=== PATIENT | male | born 1945 | race Caucasian/White ===

== ENCOUNTER 2017-05-28 13:46 | Emergency (ER) | payer MEDICARE, BC ==
[~2017-05-28] VITALS: Ht 154.9 cm; Wt 83.9 kg
[~2017-05-28 13:46] MED LIST: BACTRIM DS 8001 TA1 PO; COLCRYS0.6 MG PO; HYDROCODONE BIT1 T11 PO; KEFLEX500 MG PO
[2017-05-28] MEDS ORDERED: CEPHALEXIN500 M1 PO (18:54)
== END 2017-05-28 19:13 | disposition home or self-care (01) ==
LOC: ED 13:46
DX: S01.81XA Laceration without foreign body of other part of head, initial encounter (principal); S01.21XA Laceration without foreign body of nose, initial encounter; S71.112A Laceration without foreign body, left thigh, initial encounter; Z79.899 Other long term (current) drug therapy; W19.XXXA Unspecified fall, initial encounter; Y93.89 Activity, other specified; Y92.099 Unspecified place in other non-institutional residence as the place of occurrence of the external cause; Y99.9 Unspecified external cause status

== ENCOUNTER 2017-10-21 01:30 | Emergency (ER) | payer MEDICARE, BC ==
[~2017-10-21] VITALS: Ht 180.3 cm; Wt 84.4 kg
[~2017-10-21 01:30] MED LIST changes: +CEPHALEXIN500 M1 PO
[2017-10-21 02:04] LABS: HEMATOCRIT 32.2 % (42.0-52.0); HEMOGLOBIN 10.7 g/dl (14.0-18.0); MEAN CELL VOLUME 84.1 fl (80.0-94.0); MEAN CORPUSCULAR HGB 27.9 pg (27.0-31.0); MEAN CORPUSCULAR HGB CONC 33.2 g/dl (33.0-37.0); MEAN PLATELET VOLUME 11.1 fl (9.6-12.3); PLATELET COUNT AUTOMATED 96 10*3/uL (130-400); RED BLOOD COUNT 3.83 10*6/uL (4.50-5.90); RED CELL DISTRI WIDTH 15.5 % (0-14.5); WHITE BLOOD COUNT 8.6 10*3/uL (4.8-10.8)
[2017-10-21 02:24] LABS: ALBUMIN 2.8 gm/dl (3.1-4.5); ALKALINE PHOSPHATASE 210 U/L (45-117); ATYPICAL LYMPHS 2 % (0-0); BUN 37 mg/dl (7-24); CHLORIDE 102 mmol/L (98-107); CREATININE 2.16 mg/dL (0.70-1.30); LIPASE 93 U/L (73-393); POTASSIUM 3.8 mmol/L (3.5-5.1); SGOT/AST 83 IU/L (3-35); SGPT/ALT 219 U/L (12-78); SODIUM 136 mmol/L (136-145); TOTAL CELLS COUNTED 100 #CELLS; TOTAL PROTEIN 7.1 gm/dL (6.4-8.2)
[2017-10-21 02:25] LABS: BURR CELLS FEW; OVALOCYTES FEW; PLATELET SUFFICIENCY LOW (NORMAL); POLYCHROMASIA SLIGHT
[2017-10-21 02:26] LABS: TROPONIN I < 0.015 ng/ml (<0.045)
[2017-10-21] MEDS ORDERED: PROAIR HFA8.5 GM INH (04:36)
[2017-10-21] MEDS ORDERED: LEVOFLOXACIN500 MG PO (04:36)
== END 2017-10-21 04:35 | disposition home or self-care (01) ==
LOC: ED 01:30
PROVIDERS: Emergency Medicine Emergency Medical Services
DX: R07.89 Other chest pain (principal); C61 Malignant neoplasm of prostate; J20.9 Acute bronchitis, unspecified; F10.10 Alcohol abuse, uncomplicated; Z88.8 Allergy status to other drugs, medicaments and biological substances

== ENCOUNTER → 2022-05-23 | Outpatient (CLI) | payer MEDICARE, OTHER ==
[~2022-05-23] MED LIST changes: +LEVOFLOXACIN500 MG PO; +PROAIR HFA8.5 GM INH
[2022-05-23 13:26] LABS: BASO # 0.1 10*3/uL (0.0-0.1); BASO % 0.6 % (0.0-1.0); EOS # 0.2 10*3/uL (0.0-0.4); EOS % 2.4 % (1.0-4.0); HEMATOCRIT 30.9 % (42.0-52.0); LYMPH % 10.9 % (27.0-41.0); MEAN CELL VOLUME 82.8 fl (80.0-94.0); MEAN CORPUSCULAR HGB CONC 31.4 g/dl (33.0-37.0); MEAN PLATELET VOLUME 10.3 fl (9.6-12.3); MONO # 0.5 10*3/uL (0.1-1.0); MONO % 4.9 % (3.0-9.0); NEUT # 7.5 10*3/uL (2.3-7.9); NEUT % 80.5 % (47.0-73.0); PLATELET COUNT AUTOMATED 111 10*3/uL (130-400); RED BLOOD COUNT 3.73 10*6/uL (4.50-5.90); RED CELL DISTRI WIDTH 14.8 % (0-14.5); WHITE BLOOD COUNT 9.4 10*3/uL (4.8-10.8)
[2022-05-23 13:49] LABS: CREATININE 2.41 mg/dL (0.70-1.30); POTASSIUM 3.9 mmol/L (3.5-5.1)
[2022-05-23 13:51] LABS: TOTAL PROTEIN 6.3 gm/dL (6.4-8.2)
[2022-05-24 05:06] LABS: TOTAL PROTEIN, SERUM 5.8 g/dL (6.0-8.5)
[2022-05-24 07:06] LABS: HBSAG Negative (Negative); HEP B CORE AB, IGM Negative (Negative); HEPATITIS C ANTIBODY <0.1 (0.0-0.9)
[2022-05-24 14:07] LABS: A/G RATIO 1.4 (0.7-1.7); ALBUMIN 3.4 g/dL (2.9-4.4); ALPHA-1-GLOBULIN 0.3 g/dL (0.0-0.4); ALPHA-2-GLOBULIN 0.6 g/dL (0.4-1.0); BETA GLOBULIN 0.7 g/dL (0.7-1.3); GAMMA GLOBULIN 0.8 g/dL (0.4-1.8); GLOBULIN, TOTAL 2.4 g/dL (2.2-3.9); M-SPIKE Not Observed g/dL (Not Observed); PE INTERPRETATION Comment: (.)
[2022-05-29 16:07] LABS: TPMT ACTIVITY 11.5 (.)
== END | disposition home or self-care (01) ==
LOC: LAB 12:13
PROVIDERS: ATTEND Dermatology
DX: L12.0 Bullous pemphigoid (principal); D48.5 Neoplasm of uncertain behavior of skin; R53.83 Other fatigue